=== PATIENT | male | born 1960 ===

== ENCOUNTER 2025-08-19 06:46 | Observation (INO) ==
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
--- NOTE | 2025-08-11 15:05 | Anesthesiology Consultation ---
Date of Service August 11, 2025 Assessment & Plan (1) Encounter for pre-operative examination: Plan - check BSG am DOS. - awaiting surgeon ordered CMP, CXR, nasal MRSA swab and medical clearance. Patient is incarcerated at [facility]. If medical clearance is obtained, patient can proceed. - Outpatient joint assessment: Patient is currently scheduled for inpatient pathway. If re-evaluated and patient/surgeon requests outpatient pathway, patient is not a recommended candidate for outpatient joint program from anesthesia standpoint. - Per medical facilities section director on 08/11/25: No known infectious disease contacts, current infectious disease symptoms in past 10 days or COVID positive test result in the past 30 days. Chart Review Chart Review: Patient NOT seen in Pre Admission Testing History Surgery Operation Date: 08/19/25 09:00 Proposed Procedures p Right Total Hip Arthroplasty - Hoang Wang MD Height/Weight Height: 5 ft 8 in Weight: 93.44 kg Allergies Allergy/AdvReac Type Severity Reaction Status Date / Time No Known Allergies Allergy Verified 08/11/25 14:31 Medications Home Medications Medication Instructions Recorded Confirmed Last Taken acetaminophen 500 mg tablet 500 mg PO QID PRN Pain 08/11/25 08/11/25 Unknown aspirin 81 mg tablet,delayed 81 mg PO DAILY 08/11/25 08/11/25 Unknown release lisinopril 40 mg tablet 40 mg PO DAILY 08/11/25 08/11/25 Unknown metformin 1,000 mg tablet 1,000 mg PO BID 08/11/25 08/11/25 Unknown multivitamin 1 tab PO DAILY 08/11/25 08/11/25 Unknown naproxen 500 mg tablet 500 mg PO BID PRN Pain 08/11/25 08/11/25 Unknown rosuvastatin 20 mg tablet 20 mg PO DAILY 08/11/25 08/11/25 Unknown Past Medical History Medical History Essential (primary) hypertension Inmate in correctional facility Mixed hyperlipidemia Pain in right hip Type 2 diabetes mellitus without complications Unilateral primary osteoarthritis, right hip Past Surgical History Surgical History Surgical history unknown Social History Smoking Status: Unknown if ever smoked Testing Laboratory Results 07/06/25 WBC: 5.6 H/H: 13/44 PLATELETS: 245,000 A1c: 6.1% PT: 12.3 INR: 1 UA: negative Urine culture: multiple organisms consistent with urethral oumou present at < 10,000 cfu/mL. No further testing performed. Electrocardiogram Date: 02/18/25 NSR, rate 91 bpm Possible LA enlargement
--- NOTE | 2025-08-16 10:23 | Anesthesiology Consultation ---
Date of Service August 16, 2025 Assessment & Plan (1) Encounter for pre-operative examination: Plan - awaiting surgeon ordered CMP, T&S, CXR and nasal culture for MRSA. - surgeon ordered medical clearance 08/10/25: "...may proceed to the OR, he is minimal risk for a cardiac event periop..." - check BSG am DOS. - Per sink cutter on 08/11/25: No known infectious disease contacts, current infectious disease symptoms in past 10 days or COVID positive test result in the past 30 days. COVID test ordered per protocol for DOS. Chart Review Chart Review: Patient NOT seen in Pre Admission Testing History Surgery Operation Date: 08/19/25 08:50 Proposed Procedures p Right Total Hip Arthroplasty - Hoang Wang MD Height/Weight Height: 5 ft 8 in Weight: 93.44 kg Allergies Allergy/AdvReac Type Severity Reaction Status Date / Time No Known Allergies Allergy Verified 08/11/25 14:31 Medications Home Medications Medication Instructions Recorded Confirmed Last Taken acetaminophen 500 mg tablet 500 mg PO QID PRN Pain 08/11/25 08/11/25 Unknown aspirin 81 mg tablet,delayed 81 mg PO DAILY 08/11/25 08/11/25 Unknown release lisinopril 40 mg tablet 40 mg PO DAILY 08/11/25 08/11/25 Unknown metformin 1,000 mg tablet 1,000 mg PO BID 08/11/25 08/11/25 Unknown multivitamin 1 tab PO DAILY 08/11/25 08/11/25 Unknown naproxen 500 mg tablet 500 mg PO BID PRN Pain 08/11/25 08/11/25 Unknown rosuvastatin 20 mg tablet 20 mg PO DAILY 08/11/25 08/11/25 Unknown Past Medical History Medical History Essential (primary) hypertension Inmate in correctional facility Mixed hyperlipidemia Pain in right hip Type 2 diabetes mellitus without complications Unilateral primary osteoarthritis, right hip Past Surgical History Surgical History Surgical history unknown Social History Smoking Status: Unknown if ever smoked Testing Laboratory Results 07/06/25 WBC: 5.6 H/H: 13/44 PLATELETS: 245,000 PT: 12.3 INR: 1 UA: negative Urine culture: multiple organisms consistent with urethral oumou present at < 10.000 cfu/ml. no further testing performed HgbA1c: 6.1% Electrocardiogram Date: 02/18/25 NSR, rate 91 bpm Possible LA enlargement
[~2025-08-19 06:46] MED LIST: BUPIVACAINE 0.5 % 5 MG/1 ML PF 10ML VIAL ONE
[2025-08-19] MEDS: LR 60ML/HR IV SCH (07:12)
[2025-08-19] MEDS: LR 500ML BOLUS, THEN 15ML/HR IV SCH (07:23)
[2025-08-19] MEDS: CeleBREX 200 MG CAP PO SCH (07:24)
[2025-08-19] MEDS: ACETAMINOPHEN 500 MG TAB PO SCH ×2 (07:24→13:07)
[2025-08-19] MEDS: FAMOTIDINE 20 MG TAB PO SCH (07:24)
[2025-08-19] MEDS: dexAMETHasone**PF** 10 MG/ML VIAL IV SCH (07:25)
[2025-08-19] MEDS ORDERED: ATROPINE SULFATE 0.1 MG/ML 10ML SYR IV PRN (07:54)
[2025-08-19] MEDS ORDERED: PROMETHAZINE HCL 6.25 MG in SODIUM CHLORIDE 0.9% 50 ML IV PRN (07:54)
[2025-08-19] MEDS ORDERED: ONDANSETRON INJ 2 MG/ML 2 ML VIAL IV PRN ×2 (07:54→10:32)
[2025-08-19] MEDS ORDERED: PROPOFOL IV EMULSION 10 MG/ML 20 ML VIAL IV ONE ×2 (08:23→08:45)
--- NOTE | 2025-08-19 08:30 | History & Physical Bridge Note ---
Date of Service August 19, 2025 History & Physical Bridge Note I have examined the patient, reviewed the History & Physical and in the interval since the performance of the History & Physical I have noted the following changes of clinical significance: no changes noted
[2025-08-19] MEDS ORDERED: MIDAZOLAM HCL 1 MG/ML 2ML VIAL ONE (08:37)
[2025-08-19] MEDS ORDERED: PROPOFOL IV EMULSION 10 MG/ML 100 ML VIAL IV ONE (08:38)
[2025-08-19] MEDS: TRANEXAMIC ACID 1,000 MG **IV Pre-op IV SCH (08:48)
[2025-08-19] MEDS ORDERED: ePHEDrine sulfate 50 MG/5 ML SYR ONE (09:28)
[2025-08-19] MEDS: ROPIV 0.5% 246mg, Ketorolac 30mg, EPINEPHrine 0.5mg in NSS INFIL SCH (09:43)
[2025-08-19] MEDS: ORTHO JOINT ANESTHETIC ONE (09:43)
[2025-08-19] MEDS ORDERED: LIDOCAINE 2% 2 ML VIAL/AMP(20MG/ML) INFIL ONE (09:54)
--- NOTE | 2025-08-19 10:25 | Operative Report ---
Post Operative Report Pre & Post Diagnosis Operation Date: 08/19/25 08:50 Preoperative diagnosis: Right hip osteoarthritis. Postop diagnosis: Right hip osteoarthritis I identified the patient and participated in the time-out.: Yes Procedure Operation Date: 08/19/25 08:50 right total hip arthroplasty Surgeon Hoang Wang MD Assembly [employer] Upholste[employer] KARLO Talamantes PA-C. No resident or fellow was available to assist. Estimated Blood Loss 100 Findings Consistent with Post-Op Diagnosis Specimens Right femoral head Anesthesia Type Spinal MAC Complications none Disposition Disposition: Recovery Room Indications 65-year-old male, incarcerated, with right hip osteoarthritis refractory to c onservative management. X-rays demonstrate [id number] disease with subchondral sclerosis and marginal osteophytes. I had a long discussion with him about the risks and benefits of surgery, alternatives to surgery, and expected outcomes. After reviewing all these he elected to proceed with surgery. All questions were answered. Informed consent was signed. Description of Procedure Patient was identified in the preoperative holding area where the surgical site, right hip, was marked. A spinal anesthetic was placed, then the patient was brought back to the main operating room, placed in the operating table and moved into the lateral decubitus position. Axillary roll was placed. All bony prominences were padded. Perioperative antibiotics and tranexamic acid 1 gram IV were administered. The operative extremity was prepped and draped in the normal sterile fashion. Prior to incision a multidisciplinary timeout was called. All in the room were in agreement. We began by making an incision for a posterior approach to the hip. We dissected down through subcutaneous tissues to the level of the fascia. The fascia was incised in line with the incision. Charnley bow was placed. Fatty tissue was reflected posteriorly off the back of the greater trochanter to expose the piriformis and short external rotators of the hip. Quadratus femoris was taken off the femur subperiosteally. The piriformis and short external rotators were dissected off the posterior aspect of the hip. A box cut was made in the capsule. Inferior hip capsule was released off the femur. The femoral head was dislocated. The femoral neck cut was made at our preoperative template. The acetabulum was then exposed. The labrum was sharply excised. Contents of the cotyloid fossa were removed with electrocautery. We then began reaming at a size 8 mm less than our preoperative template. We reamed up by [address] the way up to a size 58 mm cup. This gave us good bleeding cancellus bone circumferentially. The acetabulum was then irrigated out and dried. The real Glasgow Gription cup was then impacted down into position with 40 degrees of lateral opening and 20 degrees of anteversion. A single cancellous bone screw was placed up into the ilium. Excellent fixation was obtained. A trial liner for a 36 mm femoral head was then placed. Next we turned our attention to the femur. The lateral neck was removed with a box osteotome. Intramedullary guide was used to establish the intramedullary canal. We then broached all the way up to a size 6. We began trialing with a high offset neck and a +5 head. Hip was reduced. Leg lengths were symmetric. The hip was stable in extension and external rotation, and stable in the sleeper position. At 90 degrees of hip flexion the hip could be internally rotated 75 degrees before levering out of the cup. I was very happy with the stability exam. Therefore the hip was dislocated and the femoral trial was removed. The acetabulum was re-exposed, and the trial liner was removed. The real polyethylene liner for a 36 mm femoral head was then impacted into the shell. The locking mechanism was checked to ensure that it had engaged which it had. The femur was re-exposed. The femoral canal was irrigated and dried. The real Actis femoral stem was opened up. This was impacted down into position. The femoral head was opened up and gently impacted down onto the trunnion. The hip was atraumatically reduced. Another 1 gram of IV tranexamic acid was started prior to closure. The wound was irrigated out with sterile Betadine solution. The periarticular injection cocktail was then placed. The short external rotators, piriformis, and posterior capsule were repaired through drill holes in the greater trochanter using #2 Vicryl. The fascia was run with a looped #1 PDS. The subcutaneous layer was closed with #1 PDS. The dermal layer was closed with 2-0 Vicryl. Zip line was used for the skin followed by a Silverlon dressing. A compressive dressing was then placed. The patient was then rolled supine. Leg lengths were rechecked and were symmetric. An abduction pillow was placed. Sedation was lifted and the patient was transferred to the recovery room in stable condition. Summary of implants: [employer] Emphasys Acetabular Shell, 3-hole, 58 mm outer diameter Glasgow Cancellous bone screw, 6.5 x 40 mm Emphasys AOX Polyethylene Acetabular Liner, Neutral, with a 36 mm inner diameter DePuy Actis collared cementless Femoral stem, 12/14 taper, size 6 high offset 36 mm ceramic femoral head with +5 offset Postoperative course: Patient will be admitted overnight from the recovery room. Patient will be weightbearing as tolerated with posterior hip precautions. Aspirin for DVT prophylaxis I attest to the content of the Intraoperative Record and any orders documented therein. Any exceptions are noted below.
--- NOTE | 2025-08-19 10:29 | Operative Report ---
Post Operative Report Pre & Post Diagnosis Operation Date: 08/19/25 08:50 Pre-Op Diagnosis: Right Hip Osteoarthritis Post-Op Diagnosis: Right Hip Osteoarthritis I identified the patient and participated in the time-out.: Yes Procedure Operation Date: 08/19/25 08:50 Actual Procedures p Right Total Hip Arthroplasty(Right) - Hoang Wang MD Surgeon Hoang Wang MD Supervisor [employer] Aye Talamantes PA-Rosibel Estimated Blood Loss 100 Findings Consistent with Post-Op Diagnosis Specimens femoral head Description of Procedure I was present during the entire case assisting with positioning, prepping, draping, wound retraction, wound closure, dressing and abduction pillow placement. No fellow present. Please see Dr. Wang operative note for specifics of the case. I attest to the content of the Intraoperative Record and any orders documented therein. Any exceptions are noted below.
[2025-08-19] MEDS ORDERED: TAMSULOSIN HCL 0.4 MG CAP PO PRN (10:32)
[2025-08-19] MEDS ORDERED: diphenhydrAMINE 50 MG/ML VIAL IV PRN (10:32)
[2025-08-19] MEDS ORDERED: METOCLOPRAMIDE HCL INJ 5 MG/ML 2 ML VIAL IV PRN (10:32)
[2025-08-19] MEDS ORDERED: ALUMINUM/MAGNESIUM SUSP 30 ML UDC PO PRN (10:32)
[2025-08-19] MEDS ORDERED: NALOXONE HCL 0.4 MG/1 ML VIAL/CARP IV PRN (10:32)
[2025-08-19] MEDS ORDERED: MAGNESIUM HYDROXIDE SUSP 30 ML UDC PO PRN (10:32)
--- NOTE | 2025-08-19 11:10 | XRay Report ---
XR pelvis 1-2V routine CLINICAL HISTORY: Postoperative evaluation. COMPARISON: Pelvis radiograph July 28, 2025. FINDINGS: Alignment of the total right hip arthroplasty is anatomic. There is no periprosthetic frac ture. A metallic density within the right thigh is unchanged from preoperative radiographs. This repr esents a small foreign body. IMPRESSION: Expected findings following total right hip arthroplasty. ACT 112: Negative or not required by law. Electronically signed by: Santos Marie M.D. 08/19/2025 11:08 AM
[2025-08-19] MEDS ORDERED: ACETAMINOPHEN 500 MG TAB PO PRN (11:56)
[2025-08-19] MEDS ORDERED: NAPROXEN 250 MG TAB PO PRN (11:56)
[2025-08-19] MEDS: SODIUM CHLORIDE 0.9% 1,000 ML IV SCH (12:24)
[2025-08-19] MEDS: KETOROLAC TROMETHAMINE 15 MG/ML VIAL IV SCH (12:24)
--- NOTE | 2025-08-19 14:16 | Anesthesiology Progress Note ---
Date of Service August 19, 2025 Anesthesia Post Procedure Vital Signs Vital Signs: Temp Pulse Pulse Resp BP Pulse Ox O2 Del Method 08/19/25 14:00 36.4 C L 88 16 166/91 H 100 Room Air 08/19/25 13:00 82 16 158/86 H 97 Room Air 08/19/25 12:29 36.3 C L 78 16 162/83 H 98 Room Air 08/19/25 12:00 36.3 C L 79 14 155/82 H 100 Room Air 08/19/25 11:45 79 14 157/83 H 98 Room Air 08/19/25 11:35 36.4 C L 84 14 151/72 H 97 Room Air 08/19/25 11:25 77 13 150/72 H 99 Room Air 08/19/25 11:15 80 20 146/78 H 99 Room Air 08/19/25 11:05 83 17 169/80 H 98 Room Air 08/19/25 10:55 90 18 110/67 100 Room Air 08/19/25 10:45 95 H 17 126/90 100 Room Air 08/19/25 10:35 85 12 127/66 100 Oxymask 08/19/25 10:28 36.2 C L 78 12 116/61 100 Oxymask 08/19/25 06:58 36.7 C 76 20 170/97 H 97 Room Air O2 Flow Rate 08/19/25 14:00 08/19/25 13:00 08/19/25 12:29 08/19/25 12:00 08/19/25 11:45 08/19/25 11:35 08/19/25 11:25 08/19/25 11:15 08/19/25 11:05 08/19/25 10:55 08/19/25 10:45 08/19/25 10:35 6 08/19/25 10:28 6 08/19/25 06:58 Pain Intensity Right Hip: Pain Intensity: 7 Transfer of Care Handoff Completed per policy Notes Mental Status: alert / awake / arousable and participated in evaluation Patient Amnestic to Procedure: Yes Nausea / Vomiting: adequately controlled Pain: adequately controlled Airway Patency, RR, SpO2: stable & adequate BP & HR: stable & adequate Hydration State: stable & adequate Neuraxial Anesthesia: was administered and sensory block is resolving Anesthetic Complications: no major complications apparent and Pt Satisfied with anesthetic care
[2025-08-19] MEDS: Scopolamine CHECK PATCH PLACEMENT SCH (15:44)
[2025-08-19] MEDS ORDERED: GLUCOSE 40% GEL 15 GM TUBE PO PRN (16:35)
[2025-08-19] MEDS ORDERED: GLUCOSE 10 TAB/TUBE PO PRN (16:35)
[2025-08-19] MEDS ORDERED: GLUCAGON FOR INJ 1 MG VIAL SQ PRN (16:35)
[2025-08-19] MEDS ORDERED: DEXTROSE 50% 50 ML SYRINGE IV PRN (16:35)
[2025-08-19] MEDS ORDERED: CARBOHYDRATES FOR HYPOGLYCEMIA PO PRN (16:35)
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
[2025-08-19] MEDS: INSULIN ASPART PER UNIT CHARGE SC SCH (17:42)
[2025-08-19 19:21] VITALS: RESP 14
[2025-08-19] MEDS: SENNA 8.6 MG TAB PO SCH (21:01)
[2025-08-19] MEDS: DOCUSATE SODIUM 100 MG CAP PO SCH (21:01)
[2025-08-19 23:29] VITALS: O2SAT 96
[2025-08-20 02:56] VITALS: BP 128/72; PULSE 103; TEMP 98.6
[2025-08-20 05:10] LABS: Hematocrit (blood only) 30.4 % (42.0-52.0); Hemoglobin 10.2 g/dL (14.0-18.0); Immature Granulocytes # (auto) 0.05 K/uL (0.01-0.20); Immature Granulocytes % (auto) 0.5 %; Mean Corpuscular Hemoglobin 28.3 pg (25.0-34.0); Mean Corpuscular Volume 84.2 fL (80.0-100.0); Platelet Count 224 K/uL (130-400); RDW Standard Deviation 38.8 fL (36.4-46.3); Red Blood Count 3.61 M/uL (4.70-6.10); White Blood Count 10.17 K/ul (4.8-10.8)
[2025-08-20 05:27] LABS: Anion Gap 6.0 (3-11); Blood Urea Nitrogen 21.0 mg/dl (6-23); Calcium 8.6 mg/dl (8.6-10.3); Carbon Dioxide 26.0 mmol/L (21-32); Chloride 106.0 mmol/L (98-107); Creatinine Clr Calc Pharmacy 59.3 ml/min; Glucose 141.0 mg/dl (70-99(Fasting)); Potassium 5.0 mmol/L (3.5-5.1); Sodium 138.0 mmol/L (136-145)
[2025-08-20] MEDS ORDERED: dexAMETHasone 10 MG in SYRINGE 0 ML IV SCH (08:00)
[2025-08-20] MEDS: ASPIRIN 81 MG ECTAB PO SCH (08:20)
[2025-08-20] MEDS: CeleBREX 200 MG CAP PO SCH (08:21)
[2025-08-20] MEDS: MULTIVITAMIN TAB PO SCH (08:21)
[2025-08-20] MEDS: ROSUVASTATIN CALCIUM 20 MG TAB PO SCH (08:21)
[2025-08-20 08:32] LABS: Hemoglobin A1C 6.5 % (4.5-5.6)
--- NOTE | 2025-08-20 08:43 | Orthopedic Progress Note ---
Date of Service August 20, 2025 Assessment & Plan (1) S/P total hip arthroplasty: Plan: Total hip precautions reviewed Weightbearing as tolerated with walker assistance. May switch to a cane in 1 week Recommended from her to stay for 1 week Ice 3-4 times a day for 15 to 20-minute intervals. Abduction pillow use x 6 weeks Keep Silverlon dressing in place until follow-up Pain control with p.o. medication DVT prophylaxis with DANA stockings and aspirin Plan is to discharge back to correctional facility later this morning Will need PT/OT when available. Showed him exercises that he can do on his own for rehab Follow-up with [facility] orthopedics as previously scheduled. With questions contact our clinic at [phone] Admission and Anticipated Discharge Date Admission Date: August 19, 2025 Subjective This 65-year-old male inmate from [facility] is seen day 1 status post right total hip arthroplasty. Patient states he is doing very well. He states his pain is well-controlled with p.o. pain medication he is receiving. Currently denies chest pain, shortness of breath, fever, chills, sweats, nausea, vomiting, diarrhea, difficulty voiding or numbness or tingling in his right lower extremity. Review of Systems Review of Systems: All systems reviewed & are unremarkable except as noted in Subjective Physical Exam Physical Exam: Right hip: Patient is easily able to perform active straight leg raise test and actively dorsi and plantarflex foot. He tolerates passive hip flexion to 80 degrees and experiences no discomfort with light passive internal or external hip rotation. Logroll test negative. Patient is neurovascularly intact in the right lower extremity. His peripheral pulses are 2+. Results & Data Vital Signs (Past 12 Hours) Vital Signs Temp Pulse Resp BP Pulse Ox O2 Del Method 08/20/25 02:55 37 C 103 H 14 128/72 96 Room Air 08/19/25 23:29 37.2 C 108 H 14 117/74 96 Room Air Diagnostic Findings Laboratory Results WBC 10.17 K/ul (4.8-10.8) 08/20/25 04:05 RBC 3.61 M/uL (4.70-6.10) L 08/20/25 04:05 Hgb 10.2 g/dL (14.0-18.0) L 08/20/25 04:05 Hct 30.4 % (42.0-52.0) L 08/20/25 04:05 MCV 84.2 fL (80.0-100.0) 08/20/25 04:05 MCH 28.3 pg (25.0-34.0) 08/20/25 04:05 MCHC 33.6 g/dL (32.0-36.0) 08/20/25 04:05 RDW Std Deviation 38.8 fL (36.4-46.3) 08/20/25 04:05 RDW Coeff of Jasbir 12.7 % (11.5-14.5) 08/20/25 04:05 Plt Count 224 K/uL (130-400) 08/20/25 04:05 MPV 9.7 fL (9.4-12.4) 08/20/25 04:05 Immature Gran % (Auto) 0.5 % 08/20/25 04:05 Neut % (Auto) 76.5 % 08/20/25 04:05 Lymph % (Auto) 10.0 % 08/20/25 04:05 Dupage % (Auto) 12.7 % 08/20/25 04:05 Eos % (Auto) 0.0 % 08/20/25 04:05 Baso % (Auto) 0.3 % 08/20/25 04:05 Neut # (Auto) 7.78 K/uL (1.40-6.50) H 08/20/25 04:05 Lymph # (Auto) 1.02 K/uL (1.20-3.40) L 08/20/25 04:05 Dupage # (Auto) 1.29 K/uL (0.11-0.59) H 08/20/25 04:05 Eos # (Auto) 0.00 K/uL (0.00-0.50) 08/20/25 04:05 Baso # (Auto) 0.03 K/uL (0.00-0.20) 08/20/25 04:05 Immature Gran # (Auto) 0.05 K/uL (0.01-0.20) 08/20/25 04:05 Sodium 138 mmol/L (136-145) 08/20/25 04:05 Potassium 5.0 mmol/L (3.5-5.1) 08/20/25 04:05 Chloride 106 mmol/L (98-107) 08/20/25 04:05 Carbon Dioxide 26 mmol/L (21-32) 08/20/25 04:05 Anion Gap 6 (3-11) 08/20/25 04:05 BUN 21 mg/dl (6-23) 08/20/25 04:05 Creatinine 1.39 mg/dl (0.6-1.4) 08/20/25 04:05 Est Cr Clr Drug Dosing 59.3 ml/min 08/20/25 04:05 eGFR 56.61 08/20/25 04:05 BUN/Creatinine Ratio 15.1 (10-20) 08/20/25 04:05 Glucose 141 mg/dl (70-99(Fasting)) H 08/20/25 04:05 POC Glucose 161 mg/dl (70-99) H 08/20/25 07:37 Estimat Average Glucose 140 mg/dl 08/20/25 04:05 Hemoglobin A1c 6.5 % (4.5-5.6) H 08/20/25 04:05 Calcium 8.6 mg/dl (8.6-10.3) 08/20/25 04:05 SARS-CoV-2, RNA, NAAT NEGATIVE (NEGATIVE) 08/19/25 06:45 Blood Type A Positive 08/19/25 06:58 Antibody Screen NEGATIVE 08/19/25 06:58 Impressions Pelvis X-Ray 08/19/25 10:32 XR pelvis 1-2V routine CLINICAL HISTORY: Postoperative evaluation. COMPARISON: Pelvis radiograph July 28, 2025. FINDINGS: Alignment of the total right hip arthroplasty is anatomic. There is no periprosthetic fracture. A metallic density within the right thigh is unchanged from preoperative radiographs. This represents a small foreign body. IMPRESSION: Expected findings following total right hip arthroplasty. ACT 112: Negative or not required by law. Electronically signed by: Santos Marie M.D. 08/19/2025 11:08 AM
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
[2025-08-20] MEDS ORDERED: NON-FORMULARY MEDICATION (Multivitamin Tablet) PO SCH (09:00)
[2025-08-22] MEDS ORDERED: Scopolamine REMOVE TRANSDERM PATCH ONE (08:00)
== END 2025-08-20 11:55 | DRG 470 ==
LOC: ASU 06:46 → 3E 10:32 → INTOOBSV 10:32